=== PATIENT | male | born 1990 ===

== ENCOUNTER 2017-05-23 11:34 | Emergency (ER) | payer SELFPAY ==
[2017-05-23 12:22] VITALS: BP 126/76
--- NOTE | 2017-05-23 12:41 | UC ---
FLU HPI - HPI Summary HPI Summary: 26 y/o male present to the urgent care c/o sore throat, dry cough, PENA, subjective fever since 05/20/2017. Pt reports pain w/ swallowing is 5/10. Pt reports he has taking ibuprofen to alleviate symptoms. Pt denies SOB, chest pain , abdominal pain, N/V/D. - History of Current Complaint Chief Complaint: UCGeneralIllness Stated Complaint: FLU SX'S Time Seen by Provider: 05/23/17 12:40 Hx Obtained From: Patient Onset/Duration: Gradual Onset, Lasting Days - 4 days, Still Present Severity Currently: Mild Severity Initially: Moderate Pain Intensity: 5 Pain Scale Used: 0-10 Numeric Associated Signs & Symptoms: Positive: Fever, Cough, Sore Throat, Headache - Risk Factors Influenza Risk Factors: Negative - Allergy/Home Medications Allergies/Adverse Reactions: Allergies Allergy/AdvReac Type Severity Reaction Status Date / Time Penicillins Allergy Hives Verified 05/23/17 12:14 Home Medications: Home Medications Guaifen/Phenyleph/Acetaminophn [Mucinex Sinus-Max Severe Cplt] 2 tab PO DAILY PRN 05/23/17 [History Confirmed 05/23/17] PMH/Surg Hx/FS Hx/Imm Hx Previously Healthy: Yes - Pt denies PMHX - Surgical History Surgical History: None - Family History Known Family History: Positive: None - Pt denies FMHX - Social History Occupation: Employed Full-time Lives: With Family Alcohol Use: Rare Substance Use Type: None Smoking Status (MU): Current Every Day Smoker Type: Cigarettes Amount Used/How Often: 1/2 - 1 PPD Length of Time of Smoking/Using Tobacco: 10 YRS Have You Smoked in the Last Year: Yes Review of Systems Constitutional: Fever Skin: Negative Eyes: Negative ENT: Sore Throat Respiratory: Cough Cardiovascular: Negative Gastrointestinal: Negative Genitourinary: Negative Motor: Negative Neurovascular: Negative Musculoskeletal: Negative Neurological: Headache Psychological: Negative Is Patient Immunocompromised?: No All Other Systems Reviewed And Are Negative: Yes Physical Exam Triage Information Reviewed: Yes Vital Signs: Initial Vital Signs Temp 98.3 F 05/23/17 12:16 Pulse 68 05/23/17 12:16 Resp 12 05/23/17 12:16 BP 126/76 05/23/17 12:16 Pulse Ox 100 02/15/18 12:16 - Additional Comments VITAL SIGNS: Reviewed. GENERAL: Patient is a well developed and nourished male who is sitting comfortable in the examining table. Patient is not in any acute respiratory distress. HEAD AND FACE: No signs of trauma. No ecchymosis, hematomas or skull depressions. No sinus tenderness. EYES: PERRLA, EOMI x 2, No injected conjunctiva, no nystagmus. No photophobia. EARS: Hearing grossly intact. Ear canals and tympanic membranes are within normal limits. MOUTH: Positive pharynx with erythema, no exudates, mild palatal petechiae. B/L tonsillar enlargement with no exudate. Uvula in midline. NECK: Supple, trachea is midline, Positive anterior cervical lymphadenopathy, no JVD, no carotid bruit, no c-spine tenderness, neck with full ROM. No meningeal signs, no Kernig's or brudzinskis signs. CHEST: Symmetric, no tenderness at palpation LUNGS: Clear to auscultation bilaterally. No wheezing or crackles. CVS: Regular rate and rhythm, S1 and S2 present, no murmurs or gallops appreciated. ABDOMEN: Soft, non-tender. No signs of distention. No rebound no guarding, and no masses palpated. Bowel sounds are normal. EXTREMITIES: FROM in all major joints, no edema, no cyanosis or clubbing. NEURO: Alert and oriented x 3. No acute neurological deficits. Speech is normal and follows commands. SKIN: Dry and warm Flu Course/Dx - Course Course Of Treatment: 26 y/o male present to the urgent care c/o sore throat, dry cough, PENA, subjective fever since 05/20/2017. Pt reports pain w/ swallowing is 5/10. Pt reports he has taking ibuprofen to alleviate symptoms. Pt denies SOB , chest pain, abdominal pain, N/V/D. Hx obtained. Pt w/ pharyngitis on examination. Rapid strep ordered, result: negative. Viral pharyngitis.Pt Rx ibuprofen PO to alleviates symptoms of pain and swelling. Advised on hand washing to avoid spreading. Pt advised to rest, eat well and avoid strenuous exercise. If symptoms do not improve or worsen advised to return to the urgent care or f/u with her PCP for further evaluation and treatment. Pt understood and agreed w/ plan of care. - Differential Dx/Diagnosis Differential Diagnosis/HQI/PQRI: Bronchitis, Influenza, Pneumonia, Upper Respiratory Infection, Other - pahryngitis, sinusitis Provider Diagnoses: 1-Viral pharyngitis Discharge - Discharge Plan Condition: Stable Disposition: HOME Prescriptions: Ibuprofen TAB* [Motrin TAB* 800 MG] 800 mg PO Q6H PRN #20 tab PRN Reason: Sore Throat Patient Education Materials: Pharyngitis (ED) Ref[place]: [facility] [facility] [place] [facility] [place]Outside] - 3 Days Additional Instructions: 1-Please take ibuprofen PO q6-8hrs prn as instructed after meals to alleviate pain and swelling. Increase fluid intake, eat well, rest and avoid strenuous exercise 2-If symptoms do not improve or worsen please return to the urgent care or f/u with your PCP for further evaluation and treatment.
== END 2017-05-23 13:46 | disposition home or self-care (01) ==
LOC: UCCORT 11:34
DX: J02.9 Acute pharyngitis, unspecified (principal); F17.210 Nicotine dependence, cigarettes, uncomplicated; Z88.0 Allergy status to penicillin
CPT/HCPCS: 87651; 99201; G0463